=== PATIENT | male | born 2000 | race Caucasian/White ===

== ENCOUNTER 2023-12-18 14:07 | Emergency (ER) | payer MEDICAID ==
[~2023-12-18] VITALS: Ht 172.7 cm; Wt 72.0 kg
[2023-12-18 14:21] VITALS: BP 134/93; PULSE 73; RESP 16; TEMP 98.2; O2SAT 100
[2023-12-18 15:40] LABS: BASOPHILS % 0.5 % (0.0-2.0); EOSINOPHILS % 0.9 % (0.0-5.0); HEMATOCRIT. 45.4 % (42.0-52.0); HEMOGLOBIN. 15.6 g/dL (14.0-18.0); LYMPHOCYTES % 26.5 % (20.0-50.0); MEAN CORPUSCULAR HEMOGLOBIN 29.5 pg (28.0-32.0); MEAN CORPUSCULAR HGB CONC 34.3 g/dL (31.0-37.0); MONOCYTES % 9.6 % (2.0-8.0); NEUTROPHILS % 62.5 % (40.0-76.0); PLATELET 258 x1000/uL (130-400); RED BLOOD CELL COUNT 5.28 mill/uL (4.7-6.1); RED CELL DISTRIBUTION WIDTH 14.5 % (11.6-14.6); WHITE BLOOD COUNT 7.2 x1000/uL (4.5-11.0)
[2023-12-18 15:44] LABS: CARBON DIOXIDE 31 mEq/L (21-32); CHLORIDE 104 mEq/L (98-107); POTASSIUM 3.7 mEq/L (3.5-5.1); SODIUM 138 mEq/L (136-145)
[2023-12-18 15:45] LABS: CALCIUM 9.8 mg/dL (8.7-10.4)
[2023-12-18 15:46] LABS: CLARITY URINE CLEAR (CLEAR); COLOR URINE YELLOW (YELLOW); GLUCOSE URINE NEGATIVE (NEGATIVE); KETONES URINE NEGATIVE (NEGATIVE); LEUKOCYTE ESTERASE URINE NEGATIVE (NEGATIVE); NITRITE URINE NEGATIVE (NEGATIVE); OCCULT BLOOD URINE NEGATIVE (NEGATIVE); PH URINE 7.5 (4.5-8.0); PROTEIN URINE NEGATIVE (NEGATIVE); SPECIFIC GRAVITY URINE 1.007 (1.005-1.030); UROBILINOGEN URINE 0.2 E.U./dL (0.2-1.0)
[2023-12-18 15:50] LABS: CREATININE 0.8 mg/dL (0.6-1.3); GLUCOSE 98 mg/dL (70-105); UREA NITROGEN BLOOD 7 mg/dL (9-23)
[2023-12-18 15:56] LABS: THYROID STIMULATING HORMONE 1.45 uIU/mL (0.55-4.78)
== END 2023-12-18 16:34 | disposition home or self-care (01) ==
LOC: ER 14:31
DX: R20.2 Paresthesia of skin (principal); M79.605 Pain in left leg; R00.2 Palpitations; J45.909 Unspecified asthma, uncomplicated
CPT/HCPCS: 80048; 81003; 83690; 83735; 84443; 85025; 36415; 71045; 93005; 99285; Z7610 ×2